=== PATIENT | female | born 1980 | race Caucasian/White ===

== ENCOUNTER 2021-06-06 15:12 | Inpatient (IN) | payer OTHER ==
[2021-06-06] MEDS ORDERED: NALOXONE HCL 0.4 MG/ML VIAL IM PRN (20:50)
[2021-06-06] MEDS ORDERED: MENTHOL/PHENOL 1 EACH UD MM PRN (20:50)
[2021-06-06] MEDS ORDERED: DICYCLOMINE HCL 10 MG CAPSULE PO PRN (20:50)
[2021-06-06] MEDS ORDERED: MAGNESIUM HYDROX 2400MG/30ML ORAL SUSPENSION 30 ML CUP PO PRN (20:50)
[2021-06-06] MEDS ORDERED: P-EPHED 60MG/TRIPROLIDI 2.5MG TABLET PO PRN (20:50)
[2021-06-06] MEDS ORDERED: MAG HYDROX/AL HYDROX/SIMETH 30 ML UNIT-DOSE CUP PO PRN (20:50)
[2021-06-06] MEDS ORDERED: ACETAMINOPHEN 325 MG TABLET (FP) PO PRN ×2 (20:50)
[2021-06-06] MEDS ORDERED: guaiFENesin 200 MG/10 ML 10 ML UNIT-DOSE CUPS PO PRN (20:50)
[2021-06-06] MEDS ORDERED: MAGNESIUM CITRATE 300 ML BOTTLE PO PRN (20:50)
[2021-06-06] MEDS ORDERED: IBUPROFEN 400 MG TABLET (FP) PO PRN (20:50)
[2021-06-06] MEDS ORDERED: NALOXONE (NARCAN) HCL 4 MG/0.1 ML SPRAY NS PRN (20:50)
[2021-06-06] MEDS ORDERED: BISMUTH SUBSALICYLATE 524 MG/30 ML PO PRN (20:50)
[2021-06-06] MEDS ORDERED: NICOTINE 10 MG CARTRIDGE (INHALER) IH PRN (20:50)
[2021-06-06] MEDS ORDERED: ONDANSETRON *ODT* 4 MG TABLET SL PRN (20:50)
[2021-06-07 00:10] VITALS: BMI 26.6
[2021-06-07] MEDS ORDERED: methaDONE HCL 40 MG DISPERSABLE TABLET PO SCH (06:00)
[2021-06-07] MEDS: MELATONIN 5 MG TABLETS PO SCH ×2 (06:00→22:57)
[2021-06-07] MEDS: THIAMINE HCL 100 MG TABLET (FP) PO SCH ×2 (06:00→22:57)
[2021-06-07] MEDS ORDERED: methaDONE HCL 40 MG DISPERSABLE TABLET PO ONE (09:44)
[2021-06-07] MEDS: NICOTINE 14 MG/24 HOURS TOPICAL PATCH TD SCH (13:58)
[2021-06-07] MEDS: PRENATAL VITAMINS W/ FOLIC ACID TABLET (FP) PO SCH (13:58)
[2021-06-08] MEDS: methaDONE HCL 40 MG DISPERSABLE TABLET PO SCH (06:04)
[2021-06-08] MEDS: NICOTINE 14 MG/24 HOURS TOPICAL PATCH TD SCH (10:40)
[2021-06-08] MEDS: PRENATAL VITAMINS W/ FOLIC ACID TABLET (FP) PO SCH (10:40)
[2021-06-08] MEDS: METHOCARBAMOL 500 MG TABLET PO PRN ×2 (10:43→20:45)
[2021-06-08] MEDS ORDERED: IBUPROFEN 600 MG TABLET (FP) PO PRN (19:11)
[2021-06-08] MEDS: THIAMINE HCL 100 MG TABLET (FP) PO SCH (22:14)
[2021-06-08] MEDS: GABAPENTIN 300 MG CAPSULE PO SCH (22:14)
[2021-06-08] MEDS: MELATONIN 5 MG TABLETS PO SCH (22:15)
[2021-06-09] MEDS: methaDONE HCL 40 MG DISPERSABLE TABLET PO SCH (05:31)
[2021-06-09] MEDS: GABAPENTIN 300 MG CAPSULE PO SCH (05:31)
[2021-06-09 07:35] VITALS: TEMP 97.7
[2021-06-09 09:49] VITALS: BP 107/69; PULSE 73
[2021-06-09] MEDS: NICOTINE 14 MG/24 HOURS TOPICAL PATCH TD SCH (10:33)
[2021-06-09] MEDS: PRENATAL VITAMINS W/ FOLIC ACID TABLET (FP) PO SCH (10:33)
[2021-06-09 12:09] LABS: CALCIUM 8.9 mg/dL (8.5-10.1)
[2021-06-09 12:10] LABS: HEMATOCRIT 36.4 % (32.4-45.2); HEMOGLOBIN 11.9 GM/dL (10.7-15.3); MCH 25.4 pg (25.7-33.7); MCHC 32.6 g/dl (32.0-36.0); MEAN CELL VOLUME 77.7 fl (80-96); MEAN PLT VOLUME 8.8 fl (7.5-11.1); PLATELET COUNT 230 10^3/uL (134-434); RBC 4.68 M/mm3 (3.60-5.2); RDW 19.9 % (11.6-15.6); WHITE BLOOD COUNT 6.3 K/mm3 (4.0-10.0)
[2021-06-09 12:10] LABS: ALBUMIN 3.4 g/dl (3.4-5.0); BLOOD UREA NITROGEN 9.9 mg/dL (7-18)
[2021-06-09 12:14] LABS: BILIRUBIN,TOTAL 0.3 mg/dL (0.2-1)
[2021-06-09 12:17] LABS: CREATININE 0.7 mg/dL (0.55-1.3)
[2021-06-09 12:19] LABS: TOT PROT 6.9 g/dl (6.4-8.2)
== END 2021-06-09 12:27 | disposition home or self-care (01) | DRG 773 ==
LOC: YASAS 15:12 → Y6N 06-07 13:16
PROVIDERS: ADMIT Allergy & Immunology; ATTEND Allergy & Immunology
PROC: HZ2ZZZZ Detoxification Services for Substance Abuse Treatment (ICD-10-PCS; principal; 2021-06-07)
DX: F10.230 Alcohol dependence with withdrawal, uncomplicated (principal); F11.20 Opioid dependence, uncomplicated; F14.20 Cocaine dependence, uncomplicated; F17.210 Nicotine dependence, cigarettes, uncomplicated; F19.24 Other psychoactive substance dependence with psychoactive substance-induced mood disorder; Z91.19 Patient's noncompliance with other medical treatment and regimen; Z56.0 Unemployment, unspecified; Z59.01 Sheltered homelessness
CPT/HCPCS: 36415; 80053; 85027; 86780; 93005; 93010; C9803; U0003; U0005

== ENCOUNTER 2021-12-08 15:28 | Inpatient (IN) | payer OTHER ==
[2021-12-08 17:51] VITALS: BMI 32.0
[2021-12-08] MEDS ORDERED: MAGNESIUM CITRATE 300 ML BOTTLE PO PRN (20:51)
[2021-12-08] MEDS ORDERED: MELATONIN 5 MG TABLETS PO PRN (20:51)
[2021-12-08] MEDS ORDERED: LOPERAMIDE HCL 2 MG CAPSULE PO PRN (20:51)
[2021-12-08] MEDS ORDERED: NICOTINE 10 MG CARTRIDGE (INHALER) IH PRN (20:51)
[2021-12-08] MEDS ORDERED: BISMUTH SUBSALICYLATE 524 MG/30 ML PO PRN (20:51)
[2021-12-08] MEDS ORDERED: METHOCARBAMOL 500 MG TABLET PO PRN (20:51)
[2021-12-08] MEDS ORDERED: ACETAMINOPHEN 325 MG TABLET (FP) PO PRN ×2 (20:51)
[2021-12-08] MEDS ORDERED: NICOTINE POLACRILEX 2 MG GUM BUC PRN (20:51)
[2021-12-08] MEDS ORDERED: hydrOXYzine PAMOATE 25 MG CAPSULE (FP) PO PRN (20:51)
[2021-12-08] MEDS ORDERED: DICYCLOMINE HCL 10 MG CAPSULE PO PRN (20:51)
[2021-12-08] MEDS ORDERED: MAG HYDROX/AL HYDROX/SIMETH 30 ML UNIT-DOSE CUP PO PRN (20:51)
[2021-12-08] MEDS ORDERED: ONDANSETRON *ODT* 4 MG TABLET SL PRN (20:51)
[2021-12-08] MEDS ORDERED: NALOXONE HCL 0.4 MG/ML VIAL IM PRN (20:51)
[2021-12-08] MEDS ORDERED: BENZOCAINE/MENTHOL (CHLORASEPTIC ) LOZENGE MM PRN (20:51)
[2021-12-08] MEDS ORDERED: MAGNESIUM HYDROX 2400MG/30ML ORAL SUSPENSION 30 ML CUP PO PRN (20:51)
[2021-12-08] MEDS ORDERED: IBUPROFEN 400 MG TABLET (FP) PO PRN (20:51)
[2021-12-09] MEDS: THIAMINE HCL 100 MG TABLET (FP) PO SCH ×2 (01:36→22:24)
[2021-12-09] MEDS: PRENATAL VITAMINS W/ FOLIC ACID TABLET (FP) PO SCH (10:40)
[2021-12-09] MEDS ORDERED: methaDONE HCL 40 MG DISPERSABLE TABLET PO SCH (10:45)
[2021-12-09] MEDS ORDERED: methaDONE HCL 10 MG TABLET ONE (11:09)
[2021-12-09] MEDS ORDERED: methaDONE HCL 40 MG DISPERSABLE TABLET ONE (11:10)
[2021-12-09 11:55] LABS: HEMATOCRIT 35.1 % (32.4-45.2); MCHC 34.1 g/dl (32.0-36.0); MEAN CELL VOLUME 82.3 fl (80-96); MEAN PLT VOLUME 9.2 fl (7.5-11.1); PLATELET COUNT 219 10^3/uL (134-434); RBC 4.27 M/mm3 (3.60-5.2); RDW 19.2 % (11.6-15.6); WHITE BLOOD COUNT 6.2 K/mm3 (4.0-10.0)
[2021-12-09 12:01] LABS: ALBUMIN 3.3 g/dl (3.4-5.0); BLOOD UREA NITROGEN 9.9 mg/dL (7-18); CALCIUM 9.1 mg/dL (8.5-10.1)
[2021-12-09 12:04] LABS: CREATININE 0.6 mg/dL (0.55-1.3)
[2021-12-09 12:06] LABS: BILIRUBIN,TOTAL 0.3 mg/dL (0.2-1); TOT PROT 6.5 g/dl (6.4-8.2)
[2021-12-09 12:47] LABS: HIV INTERPRETATION NEGATIVE (NEGATIVE)
[2021-12-09] MEDS: GABAPENTIN 300 MG CAPSULE PO SCH (22:24)
[2021-12-10] MEDS ORDERED: methaDONE HCL 10 MG TABLET ONE (04:01)
[2021-12-10] MEDS ORDERED: methaDONE HCL 40 MG DISPERSABLE TABLET ONE (04:02)
[2021-12-10] MEDS: GABAPENTIN 300 MG CAPSULE PO SCH (06:26)
[2021-12-10] MEDS: PRENATAL VITAMINS W/ FOLIC ACID TABLET (FP) PO SCH (10:36)
[2021-12-10 13:07] VITALS: BP 115/71; PULSE 97; TEMP 97.7
[2021-12-12 11:12] LABS: SARS-CoV-2 NAA NOT DETECTED
== END 2021-12-10 13:29 | disposition home or self-care (01) | DRG 773 ==
LOC: YASAS 15:28 → UNDOADMIN 22:45 → Y3N 22:45
PROVIDERS: ADMIT Allergy & Immunology; ATTEND Allergy & Immunology
PROC: HZ2ZZZZ Detoxification Services for Substance Abuse Treatment (ICD-10-PCS; principal; 2021-12-08)
DX: F11.23 Opioid dependence with withdrawal (principal); F14.20 Cocaine dependence, uncomplicated; F17.210 Nicotine dependence, cigarettes, uncomplicated; F31.9 Bipolar disorder, unspecified; F41.9 Anxiety disorder, unspecified; F43.10 Post-traumatic stress disorder, unspecified; M54.50 Low back pain, unspecified; G89.29 Other chronic pain
CPT/HCPCS: 36415; 80053; 85027; 86780; 87389; C9803-CS; U0003; U0005

== ENCOUNTER 2024-07-10 15:24 | Inpatient (IN) | payer OTHER ==
[2024-07-10 15:46] VITALS: BMI 25.2
[2024-07-10] MEDS ORDERED: NICOTINE POLACRILEX 2 MG LOZENGE BC PRN (16:45)
[2024-07-10] MEDS ORDERED: guaiFENesin 600 MG TABLET.ER (FP) PO PRN (16:45)
[2024-07-10] MEDS ORDERED: BENZONATATE 200 MG CAPSULE PO PRN (16:45)
[2024-07-10] MEDS ORDERED: ACETAMINOPHEN 325 MG TABLET (FP) PO PRN (16:45)
[2024-07-10] MEDS ORDERED: NALOXONE (NARCAN) HCL 4 MG/0.1 ML SPRAY NS PRN (16:45)
[2024-07-10] MEDS ORDERED: NICOTINE POLACRILEX 2 MG GUM BUC PRN (16:45)
[2024-07-10] MEDS ORDERED: P-EPHED 60MG/TRIPROLIDI 2.5MG TABLET PO PRN (16:45)
[2024-07-10] MEDS ORDERED: IBUPROFEN 400 MG TABLET (FP) PO PRN (16:45)
[2024-07-10] MEDS ORDERED: LOPERAMIDE HCL 2 MG CAPSULE PO PRN (16:45)
[2024-07-10] MEDS ORDERED: POLYETHYLENE GLYCOL (HEALTHYLAX) 3350 17 GM PACKET PO PRN (16:45)
[2024-07-10] MEDS ORDERED: MAG HYDROX/AL HYDROX/SIMETH 30 ML UNIT-DOSE CUP PO PRN (16:45)
[2024-07-10] MEDS ORDERED: MAGNESIUM HYDROX 2400MG/30ML ORAL SUSPENSION 30 ML CUP PO PRN (16:45)
[2024-07-10] MEDS ORDERED: BENZOCAINE/MENTHOL (CHLORASEPTIC ) LOZENGE MM PRN (16:45)
[2024-07-10] MEDS: TUBERCULIN PPD 5 TU/0.1ML SYRINGE (IN PATIENT USE ONLY) ID ONE (20:30)
[2024-07-10] MEDS: MELATONIN 5 MG TABLETS PO SCH (22:55)
[2024-07-10] MEDS: THIAMINE 100 MG TABLET PO SCH (22:55)
[2024-07-11] MEDS ORDERED: methaDONE HCL 10 MG TABLET PO SCH (08:30)
[2024-07-11] MEDS: PRENATAL VITAMINS W/ FOLIC ACID TABLET (FP) PO SCH (09:01)
[2024-07-11 11:35] LABS: HEMATOCRIT 37.1 % (32.4-45.2); HEMOGLOBIN 12.5 GM/dL (10.7-15.3); MCH 27.3 pg (25.7-33.7); MCHC 33.6 g/dl (32.0-36.0); MEAN CELL VOLUME 81.4 fl (80-96); MEAN PLT VOLUME 9.2 fl (7.5-11.1); PLATELET COUNT 218 10^3/uL (134-434); POTASSIUM 3.9 mmol/L (3.5-5.1); RBC 4.55 M/mm3 (3.60-5.2); RDW 17.8 % (11.6-15.6); WHITE BLOOD COUNT 5.7 K/mm3 (4.0-10.0)
[2024-07-11 11:36] LABS: CALCIUM 8.9 mg/dL (8.5-10.1)
[2024-07-11 11:39] LABS: ALBUMIN 3.3 g/dl (3.4-5.0); BLOOD UREA NITROGEN 10.4 mg/dL (7-18)
[2024-07-11 11:42] LABS: BILIRUBIN,TOTAL 0.3 mg/dL (0.2-1); CREATININE 0.6 mg/dL (0.55-1.3); TOT PROT 6.6 g/dl (6.4-8.2)
[2024-07-11] MEDS: GABAPENTIN 300 MG CAPSULE PO SCH (14:19)
[2024-07-11] MEDS: IBUPROFEN 600 MG TABLET (FP) PO PRN (23:58)
[2024-07-11] MEDS: hydrOXYzine PAMOATE 25 MG CAPSULE (FP) PO PRN (23:58)
[2024-07-12 05:59] VITALS: BP 117/71; PULSE 61; RESP 16; TEMP 97.8
[2024-07-12] MEDS ORDERED: NALOXONE (NYS OPIOID OVERDOSE PROGRAM) 4 MG/0.1 ML SPRAY NS SCH (12:00)
== END 2024-07-12 12:45 | disposition left against medical advice (07) | DRG 772 ==
LOC: YASAS 15:24 → Y3NR 18:34
PROVIDERS: ADMIT Psychiatry & Neurology Pain Medicine; ATTEND Psychiatry & Neurology Pain Medicine
PROC: HZ42ZZZ Group Counseling for Substance Abuse Treatment, Cognitive-Behavioral (ICD-10-PCS; principal; 2024-07-10)
DX: F14.20 Cocaine dependence, uncomplicated (principal); F11.20 Opioid dependence, uncomplicated; F17.210 Nicotine dependence, cigarettes, uncomplicated; F41.9 Anxiety disorder, unspecified; G62.9 Polyneuropathy, unspecified; F91.8 Other conduct disorders; Z91.199 Patient's noncompliance with other medical treatment and regimen due to unspecified reason
CPT/HCPCS: 36415; 80053; 80305; 80307; 81025; 85027; 86780; 87811; 93005; 93010